=== PATIENT | female | born 1995 | race Caucasian/White ===

== ENCOUNTER 2017-12-22 22:15 | Observation (INO) | payer SELFPAY ==
[~2017-12-22] VITALS: Ht 157.5 cm; Wt 128.4 kg
[2017-12-22] MEDS ORDERED: PREN1TAB80 PO (23:25)
[2017-12-22 23:27] VITALS: BP 121/58
== END 2017-12-23 01:25 | disposition home or self-care (01) ==
LOC: 4S 22:15 → INTOOBSV 22:15
PROVIDERS: ADMIT Obstetrics & Gynecology; ATTEND Obstetrics & Gynecology
DX: O26.852 Spotting complicating pregnancy, second trimester (principal); O26.892 Other specified pregnancy related conditions, second trimester; R10.9 Unspecified abdominal pain; Z3A.25 25 weeks gestation of pregnancy
CPT/HCPCS: 59025; 76811; 80307 ×8; G0378 ×2

== ENCOUNTER 2018-01-28 12:42 | Emergency (ER) | payer SELFPAY ==
[~2018-01-28] VITALS: Ht 157.5 cm; Wt 122.7 kg
[~2018-01-28 12:42] MED LIST: PREN1TAB80 PO
[2018-01-28 12:48] VITALS: BP 129/55
[2018-01-28 12:59] LABS: GLUCOSE,POINT OF CARE 77 MG/DL (70-110)
== END 2018-01-28 13:17 | disposition left against medical advice (07) ==
LOC: EMS 12:43
DX: R42 Dizziness and giddiness (principal); Z53.21 Procedure and treatment not carried out due to patient leaving prior to being seen by health care provider